=== PATIENT | female | born 1955 | race Caucasian/White ===

== ENCOUNTER 2019-12-17 11:47 | Emergency (ER) | payer MEDICARE, SELFPAY ==
[2019-12-17 11:59] VITALS: BP 168/74; PULSE 80; RESP 20; TEMP 36.9; O2SAT 98; BMI 32.8
--- NOTE | 2019-12-17 12:22 | ED.ABDPAIN ---
HPI - Abdominal Pain <DENILSON Benitez - Last Filed: 12/17/19 22:35> General Chief Complaint: Abdominal Pain Stated Complaint: Lower Abd Pain on Rt Side Time Seen by Provider: 12/17/19 12:03 Source: patient Mode of arrival: Wheelchair Limitations: no limitations History of Present Illness HPI narrative: This is a 64 year female, nonsmoker, who has history of hysterectomy and C-sections presents to ED with chief complain of right lower quadrant pain for last 3 days. Patient reports discomfort feels as spasming and grabs intermittently. Patient used heat which helped with discomfort but can associated things to aggravate pain. Patient denies fever, chills, nausea or vomiting. Patient had bowel movements twice this morning which was initially hard and 2nd on she had soft 1 without blood in her stool. Patient denies urinary symptoms. Patient had last meal at 8:00 p.m. last night and had lots of liquids this morning to drink. Patient presents to walk-in clinic this morning and she was referred to ED for further workup. Related Data Previous Rx's Medication Instructions Recorded ciprofloxacin HCl [Cipro] 500 mg PO BID 7 Days #14 tab 12/17/19 hydrocodone-acetaminophen [Buchanan] 1 tab PO Q8H PRN #7 tab 12/17/19 metronidazole [Flagyl] 500 mg PO Q8H 7 Days #21 tab 12/17/19 Allergies Allergy/AdvReac Type Severity Reaction Status Date / Time Sulfa (Sulfonamide AdvReac Intermediate Verified 12/17/19 11:25 Antibiotics) Review of Systems <DENILSON Benitez - Last Filed: 12/17/19 22:35> Review of Systems Narrative: General: Denies fever, chills, fatigue, malaise, sweats. HEENT: Denies sinus pain, ear pain, sore throat, difficulty swallowing, dizziness. Respiratory: Denies dyspnea, cough, wheezing, hemoptysis, sputum. Cardiovascular: Denies chest pain, palpitations, orthopnea, edema. Gastrointestinal: See HPI : Denies dysuria, frequency, incontinence, hematuria, urinary retention. Musculoskeletal: Denies weakness, joint pain or bony pain. Skin: Denies rash, skin lesions, or other. Neurologic: Denies weakness, headache, numbness, change in speech, confusion, seizures, incoordination. Psychiatric: No concerning psychosocial issues. 12-point review of systems is negative except for those stated above. Patient History <DENILSON Benitez - Last Filed: 12/17/19 22:35> Surgical History H/O: hysterectomy (Acute) History of (Acute) Social History Smoking Status: Never smoker Smoking Status: Never smoker alcohol intake frequency: 3 or more drinks per day Substance Use Type: does not use Exam <DENILSON Benitez - Last Filed: 12/17/19 22:35> Narrative Exam Narrative: GEN: Alert, oriented x 3, well appearing and nourished, and in no acute distress. Head: Normal cephalic, atraumatic. No scalp or temporal tenderness, palpable mass or rash. EYES: Pupils are equal, round, and reactive to light and accommodation. Extraocular muscles are intact bilaterally. There is no subconjunctival hemorrhage, exudate and sclera non-icteric. ENT: Hearing grossly intact. Nose without bleeding, purulent discharge or deviation. Mucous membrane moist, no mucosal lesion. Throat without erythema, tonsillar hypertrophy or exudate. Uvula in midline, airway patent. Neck: Trachea in midline. No JVD, non-tender without lymphadenopathy. No masses or thyroid megaly. Supple, non-tender and no meningeal signs. CARDIAC: Normal regular rate and rhythm without murmurs, gallops, or rubs. No chest wall tenderness. No peripheral edema, cyanosis or pallor. Capillary refill is less than 2 seconds. RESPIRATORY: Lungs are clear to auscultate bilaterally. No cough, wheezes, rales, or rhonchi. No stridor, respiratory distress, increase work of breathing, or accessary muscle used. ABD: Abdomen soft, focalized exquisite tenderness near McBurney's point. No guarding or rebound tenderness to palpate. Bowel sounds are normal in all 4 quadrants. There is no palpable masses or organomegaly. EXT: Full painless ROM of all extremities with no loss of sensation, strength, effusion or edema. SKIN: Warm, dry, normal color for patient. No erythema, lesions or rash over visible areas. BACK: Nontender without deformity or crepitance. No flank tenderness. NEUROLOGICAL: Alert and oriented to place, time and person. Sensation and motor function intact bilaterally. No facial droops, dysphasia. PSYCHIATRIC: Good judgement and reason, without hallucinations, abnormal affect or abnormal behaviors during the examination. Patient is not suicidal. Initial Vital Signs Initial Vital Signs: Vital Signs Temperature 98.5 F 12/17/19 11:59 Pulse Rate 80 12/17/19 11:59 Respiratory Rate 12/17/19 11:59 Blood Pressure 168/74 H 12/17/19 11:59 Pulse Oximetry 98 12/17/19 11:59 <Shelbi Fatima DO - Last Filed: 12/18/19 07:07> Initial Vital Signs Initial Vital Signs: Vital Signs Temperature 98.5 F 12/17/19 11:59 Pulse Rate 80 12/17/19 11:59 Respiratory Rate 12/17/19 11:59 Blood Pressure 168/74 H 12/17/19 11:59 Pulse Oximetry 98 12/17/19 11:59 Scores <DENILSON Benitez - Last Filed: 12/17/19 22:35> GCS [place] coma scale eye opening: Spontaneous [place] coma scale verbal response: Orientated Od[place]ys coma scale motor response: Obey commands Odalys coma scale total score: 15 qSOFA Altered Mental Status (GCS <15): No Respiratory rate greater than/equal to 22: No Systolic blood pressure less than or equal to 100: No qSOFA Total: 0 0-1 Not High Risk 1-3 High risk Course <DENILSON Benitez - Last Filed: 12/17/19 22:35> Orders Ordered: Discontinued Medications Ciprofloxacin (Cipro) 500 mg PO NOW ONE Stop: 12/17/19 15:29 Last Admin: 12/17/19 15:42 Dose: 500 mg Documented by: SUHAS Ketorolac Tromethamine (Toradol) 15 mg IV NOW ONE Stop: 12/17/19 12:15 Last Admin: 12/17/19 13:08 Dose: 15 mg Documented by: SUHAS Metronidazole (Metronidazole) 500 mg PO NOW ONE Stop: 12/17/19 15:29 Last Admin: 12/17/19 15:42 Dose: 500 mg Documented by: SUHAS Vital Signs Vital signs: Vital Signs - 8 hr 12/17/19 14:45 12/17/19 16:01 Pulse Rate 79 72 Respiratory Rate 15 18 Blood Pressure 119/64 116/65 Pulse Oximetry 97 97 <Shelbi Fatima DO - Last Filed: 12/18/19 07:07> Orders Ordered: Discontinued Medications Ciprofloxacin (Cipro) 500 mg PO NOW ONE Stop: 12/17/19 15:29 Last Admin: 12/17/19 15:42 Dose: 500 mg Documented by: SUHAS Ketorolac Tromethamine (Toradol) 15 mg IV NOW ONE Stop: 12/17/19 12:15 Last Admin: 12/17/19 13:08 Dose: 15 mg Documented by: SUHAS Metronidazole (Metronidazole) 500 mg PO NOW ONE Stop: 12/17/19 15:29 Last Admin: 12/17/19 15:42 Dose: 500 mg Documented by: SUHAS Vital Signs Vital signs: Vital Signs - 8 hr 12/17/19 14:45 12/17/19 16:01 Pulse Rate 79 72 Respiratory Rate 15 18 Blood Pressure 119/64 116/65 Pulse Oximetry 97 97 MDM - Abdominal Pain <DENILSON Benitez - Last Filed: 12/17/19 22:35> Differential Diagnosis Differential diagnosis: Likely abdominal pain, acute appendicitis, small bowel obstruction and other (Mesenteric adenopathy, hernia, colitis, ovarian cyst) Medical Records Attestation: I reviewed the patient's medical records. Lab Data Attestation: I reviewed the patient's lab results. Result diagrams: 12/17/19 12:45 12/17/19 12:45 Labs: Lab Results 12/17/19 12/17/19 12/17/19 Range/Units 12:45 12:45 12:45 WBC 6.4 (4.5-11.0) X10^3/uL RBC 4.48 (4.0-5.2) X10^6/uL Hgb 13.5 (12.0-16.0) g/dL Hct 40.2 (36-46) % MCV 89.8 (80-100) fL MCH 30.0 (26-34) PG MCHC 33.5 (30-36) % RDW 13.0 (11.6-14.8) % Plt Count 247 (150-400) X10^3/uL Neut % (Auto) 59.0 (50-75) % Lymph % (Auto) 30.7 (25-40) % [place] % (Auto) 7.5 (3-14) % Eos % (Auto) 2.2 (2-4) % Baso % (Auto) 0.6 (0-2) % Neut # (Auto) 3800 (5570-4689) /uL Lymph # (Auto) 2000 (9283-6713) /uL [place] # (Auto) 500 (0-900) /uL Eos # (Auto) 100 (0-450) /uL Baso # (Auto) 0 (0-100) /uL PT 11.2 (10.1-12.7) SECONDS INR 1.0 (0.9-1.3) APTT 28 (26.4-36.2) SECONDS Sodium 138 (137-145) mmol/L Potassium 3.9 (3.4-5.1) mmol/L Chloride 106 (98-107) mmol/L Carbon Dioxide 29 (22-32) mmol/L BUN 11 (7-17) mg/dL Creatinine 0.72 (0.52-1.04) mg/dL Estimated GFR > 60.0 (>60) mL/min BUN/Creatinine Ratio 15.3 (6-22) Glucose 106 (80-110) mg/dL Lactate (0.7-2.1) mmol/L Calcium 9.5 (8.4-10.2) mg/dL Total Bilirubin 0.6 (0.2-1.3) mg/dL AST 40 H (14-36) IU/L ALT 57 H (<35) IU/L Alkaline Phosphatase 81 (38-126) U/L Total Protein 7.5 (6.3-8.2) g/dL Albumin 4.7 (3.5-5.0) g/dL Globulin 2.8 (1.7-4.1) g/dL Albumin/Globulin Ratio 1.7 (1.0-2.8) Lipase 67 (23-300) U/L Urine Color Urine Appearance Urine pH (4.5-8.0) Ur Specific [place] (1.000-1.035) Urine Protein (Negative) Urine Glucose (UA) (Negative) g/dL Urine Ketones (NEGATIVE) Urine Occult Blood (Negative) Urine Nitrate (Negative) Urine Bilirubin (NEGATIVE) Urine Urobilinogen (0.2) E.U./dL Ur Leukocyte Esterase (NEGATIVE) Urine RBC (0-5/HPF) Urine WBC (0-5/HPF) Urine Bacteria (None) Ur Culture Indicated? Micro UA Comment 12/17/19 12/17/19 Range/Units 12:45 20:45 WBC (4.5-11.0) X10^3/uL RBC (4.0-5.2) X10^6/uL Hgb (12.0-16.0) g/dL Hct (36-46) % MCV (80-100) fL MCH (26-34) PG MCHC (30-36) % RDW (11.6-14.8) % Plt Count (150-400) X10^3/uL Neut % (Auto) (50-75) % Lymph % (Auto) (25-40) % [place] % (Auto) (3-14) % Eos % (Auto) (2-4) % Baso % (Auto) (0-2) % Neut # (Auto) (9018-4983) /uL Lymph # (Auto) (3063-4575) /uL [place] # (Auto) (0-900) /uL Eos # (Auto) (0-450) /uL Baso # (Auto) (0-100) /uL PT (10.1-12.7) SECONDS INR (0.9-1.3) APTT (26.4-36.2) SECONDS Sodium (137-145) mmol/L Potassium (3.4-5.1) mmol/L Chloride (98-107) mmol/L Carbon Dioxide (22-32) mmol/L BUN (7-17) mg/dL Creatinine (0.52-1.04) mg/dL Estimated GFR (>60) mL/min BUN/Creatinine Ratio (6-22) Glucose (80-110) mg/dL Lactate 0.7 (0.7-2.1) mmol/L Calcium (8.4-10.2) mg/dL Total Bilirubin (0.2-1.3) mg/dL AST (14-36) IU/L ALT (<35) IU/L Alkaline Phosphatase (38-126) U/L Total Protein (6.3-8.2) g/dL Albumin (3.5-5.0) g/dL Globulin (1.7-4.1) g/dL Albumin/Globulin Ratio (1.0-2.8) Lipase (23-300) U/L Urine Color Yellow Urine Appearance Clear Urine pH 7.0 (4.5-8.0) Ur Specific [place] <=1.005 (1.000-1.035) Urine Protein Negative (Negative) Urine Glucose (UA) Negative (Negative) g/dL Urine Ketones Negative (NEGATIVE) Urine Occult Blood Negative (Negative) Urine Nitrate Negative (Negative) Urine Bilirubin Negative (NEGATIVE) Urine Urobilinogen 0.2 (0.2) E.U./dL Ur Leukocyte Esterase Negative (NEGATIVE) Urine RBC None seen (0-5/HPF) Urine WBC None seen (0-5/HPF) Urine Bacteria None seen (None) Ur Culture Indicated? Cult not indicated Micro UA Comment Microscopic normal Imaging Data CT scan - abdomen/pelvis: Radiologist's Impression: [place] [address] CT Scan Report Signed Patient: Heidi Cruz CMR#: [id number] : 4Acct:[id number] Age/Sex: 64 / FDate of Service: 12/17/19 Loc: ED Accession Number: [id number] Procedure: CT abdomen pelvis w con Ordering Provider: Fermin Pittman PROCEDURE: CT ABDOMEN PELVIS W CON INDICATIONS: RLQ pain TECHNIQUE: After the administration of intravenous contrast, 5 mm thick sections acquired from the diaphragm to the symphysis. 5 mm coronal and sagittal reformats were acquired. For radiation dose reduction, the following was used: automated exposure control, adjustment of mA and/or kV according to patient size. COMPARISON: None. FINDINGS: Image quality: Excellent. ABDOMEN: Lung bases: There is an 11 mm ovoid soft tissue nodule seen involving the right lateral costophrenic angle, as on series 3, image 7. Heart size is normal. A small hiatal hernia is incidentally noted. Solid organs: Liver is normal in size and enhancement. Diffuse fatty liver infiltration is noted. Gallbladder wall is not thickened. Biliary system is non dilated. Pancreas enhances normally. Spleen is normal in size and enhancement. No adrenal nodules. Kidneys demonstrate normal size and enhancement, without hydronephrosis. Peritoneum and bowel: In this patient with this given history, scrutiny is given to the appendix and the right lower quadrant. No appendix (either normal or abnormal) is identified on this study. There is mild wall thickening seen involving the proximal ascending colon, with mild surrounding inflammatory change. No free air is seen to suggest perforation. No focal fluid collection is seen to suggest abscess. No bowel wall thickening is seen elsewhere. Colonic diverticulosis is seen, without findings of active diverticulitis. No dilated loops of small bowel are seen. Nodes and vessels: No retroperitoneal or mesenteric adenopathy by size criteria. Aorta and inferior vena cava are normal in size. Miscellaneous: No ventral hernias. PELVIS: Genitourinary: Bladder wall thickness is normal. This patient is status post hysterectomy. No adnexal masses are seen. Miscellaneous: No inguinal hernias or adenopathy. Bones: No suspicious bony lesions. No vertebral body compression fractures. Mild levoconvex scoliotic curvature is noted. Focal L5-S1 degenerative change is seen. Milder degenerative changes are seen elsewhere. IMPRESSION: There is mild inflammatory change seen involving the ascending colon. Please correlate with potential infectious and inflammatory causes. No appendix (either normal or abnormal) can be seen. Note is made of an 11 mm right lung base nodule. In a patient of this age, please consider a dedicated chest CT with IV contrast, when clinically appropriate. Incidental note is made of: Small hiatal hernia Fatty liver infiltration Hysterectomy No adnexal masses Focal L5-S1 degenerative change Note: Findings and recommendations discussed by telephone with DENILSON Benitez at 1:50 p.m. [place] time on December 17, 2019. Dictated by: Marek Porter M.D. on 12/17/2019 at 13:45 Approved by: Marek Porter M.D. on 12/17/2019 at 13:51 ECG Data Attestation: I personally reviewed and interpreted this ECG as follows: Prior ECG tracings: not available for review Interpretation: Sinus rhythm rate at 73. Normal [place]. RI interval 160, QRS duration 72, QT/QTC 390/429. No acute ST changes. MDM Narrative Medical decision making narrative: This is a 64 year female who presents to ED with right lower quadrant pain for last 3 days. Patient denies constitutional symptoms. Abdomen with exquisite tenderness in near McBurney's point but without rebound tenderness. She has history of several abdominal surgeries including hysterectomy and C-sections. EKG was normal sinus rhythm without acute ST changes. Urine test does not indicate infection. No leukocytosis. Unremarkable chemistry test except very mildly elevated AST and ALT of 40 and 57. Normal lipase. Lactate was normal at 0.7. Physical exam was not quiet consistent as appendicitis. Patient is not sure whether she has ovaries. Abdomen/pelvis CT test indicates mild inflammatory changes involving the ascending colon. No appendectomy is identified in CT. No signs of perforation, abscess, adnexal masses or mesenteric adenopathy appreciated. Incidental findings of 11 mm right lung base nodules and recommended dedicated chest CT with IV contrast; small hiatal hernia; fatty liver infiltration. Dr. Porter (radiologist) called to inform the findings at 1350. Findings were shared with the patient and she was medicated with Flagyl and Cipro and discharged to home with the remaining 7 day course given exquisite tenderness prophylactically as colitis. The patient was medicated with IV Toradol which moderately improved pain and discharged to home with few tabs of Buchanan for severe pain. Return precautions were discussed with patient and patient advised to follow-up with her primary care physician next 2-3 days for reassessment on abdominal pain and lung nodules. Patient verbalized understanding and agreement with the treatment plan. Consulted Dr. Fatima with physical, lab, CT findings and treatment plan. <Shelbi Fatima, DO - Last Filed: 12/18/19 07:07> Lab Data Labs: Lab Results 12/17/19 12/17/19 12/17/19 Range/Units 12:45 12:45 12:45 WBC 6.4 (4.5-11.0) X10^3/uL RBC 4.48 (4.0-5.2) X10^6/uL Hgb 13.5 (12.0-16.0) g/dL Hct 40.2 (36-46) % MCV 89.8 (80-100) fL MCH 30.0 (26-34) PG MCHC 33.5 (30-36) % RDW 13.0 (11.6-14.8) % Plt Count 247 (150-400) X10^3/uL Neut % (Auto) 59.0 (50-75) % Lymph % (Auto) 30.7 (25-40) % [place] % (Auto) 7.5 (3-14) % Eos % (Auto) 2.2 (2-4) % Baso % (Auto) 0.6 (0-2) % Neut # (Auto) 3800 (8558-8433) /uL Lymph # (Auto) 2000 (1925-5672) /uL [place] # (Auto) 500 (0-900) /uL Eos # (Auto) 100 (0-450) /uL Baso # (Auto) 0 (0-100) /uL PT 11.2 (10.1-12.7) SECONDS INR 1.0 (0.9-1.3) APTT 28 (26.4-36.2) SECONDS Sodium 138 (137-145) mmol/L Potassium 3.9 (3.4-5.1) mmol/L Chloride 106 (98-107) mmol/L Carbon Dioxide 29 (22-32) mmol/L BUN 11 (7-17) mg/dL Creatinine 0.72 (0.52-1.04) mg/dL Estimated GFR > 60.0 (>60) mL/min BUN/Creatinine Ratio 15.3 (6-22) Glucose 106 (80-110) mg/dL Lactate (0.7-2.1) mmol/L Calcium 9.5 (8.4-10.2) mg/dL Total Bilirubin 0.6 (0.2-1.3) mg/dL AST 40 H (14-36) IU/L ALT 57 H (<35) IU/L Alkaline Phosphatase 81 (38-126) U/L Total Protein 7.5 (6.3-8.2) g/dL Albumin 4.7 (3.5-5.0) g/dL Globulin 2.8 (1.7-4.1) g/dL Albumin/Globulin Ratio 1.7 (1.0-2.8) Lipase 67 (23-300) U/L Urine Color Urine Appearance Urine pH (4.5-8.0) Ur Specific [place] (1.000-1.035) Urine Protein (Negative) Urine Glucose (UA) (Negative) g/dL Urine Ketones (NEGATIVE) Urine Occult Blood (Negative) Urine Nitrate (Negative) Urine Bilirubin (NEGATIVE) Urine Urobilinogen (0.2) E.U./dL Ur Leukocyte Esterase (NEGATIVE) Urine RBC (0-5/HPF) Urine WBC (0-5/HPF) Urine Bacteria (None) Ur Culture Indicated? Micro UA Comment 12/17/19 12/17/19 Range/Units 12:45 20:45 WBC (4.5-11.0) X10^3/uL RBC (4.0-5.2) X10^6/uL Hgb (12.0-16.0) g/dL Hct (36-46) % MCV (80-100) fL MCH (26-34) PG MCHC (30-36) % RDW (11.6-14.8) % Plt Count (150-400) X10^3/uL Neut % (Auto) (50-75) % Lymph % (Auto) (25-40) % [place] % (Auto) (3-14) % Eos % (Auto) (2-4) % Baso % (Auto) (0-2) % Neut # (Auto) (9975-1455) /uL Lymph # (Auto) (2644-1757) /uL [place] # (Auto) (0-900) /uL Eos # (Auto) (0-450) /uL Baso # (Auto) (0-100) /uL PT (10.1-12.7) SECONDS INR (0.9-1.3) APTT (26.4-36.2) SECONDS Sodium (137-145) mmol/L Potassium (3.4-5.1) mmol/L Chloride (98-107) mmol/L Carbon Dioxide (22-32) mmol/L BUN (7-17) mg/dL Creatinine (0.52-1.04) mg/dL Estimated GFR (>60) mL/min BUN/Creatinine Ratio (6-22) Glucose (80-110) mg/dL Lactate 0.7 (0.7-2.1) mmol/L Calcium (8.4-10.2) mg/dL Total Bilirubin (0.2-1.3) mg/dL AST (14-36) IU/L ALT (<35) IU/L Alkaline Phosphatase (38-126) U/L Total Protein (6.3-8.2) g/dL Albumin (3.5-5.0) g/dL Globulin (1.7-4.1) g/dL Albumin/Globulin Ratio (1.0-2.8) Lipase (23-300) U/L Urine Color Yellow Urine Appearance Clear Urine pH 7.0 (4.5-8.0) Ur Specific [place] <=1.005 (1.000-1.035) Urine Protein Negative (Negative) Urine Glucose (UA) Negative (Negative) g/dL Urine Ketones Negative (NEGATIVE) Urine Occult Blood Negative (Negative) Urine Nitrate Negative (Negative) Urine Bilirubin Negative (NEGATIVE) Urine Urobilinogen 0.2 (0.2) E.U./dL Ur Leukocyte Esterase Negative (NEGATIVE) Urine RBC None seen (0-5/HPF) Urine WBC None seen (0-5/HPF) Urine Bacteria None seen (None) Ur Culture Indicated? Cult not indicated Micro UA Comment Microscopic normal Discharge Plan Departure Patient Disposition: Home Clinical Impression: Colitis, Lung nodule Abdominal pain Qualifiers: Abdominal location: right lower quadrant Qualified Code(s): R10.31 - Right lower quadrant pain Discharge Date/Time: 12/17/19 16:03 Instructions: DI for Colitis Activity Restrictions/Additional Instructions: You have been diagnosed with [right quadrant pain and colitis in the proximal ascending colon. Incidental findings of 11 mm right lung base nodule.]. What to do: *Take your medications as directed. Please take Cipro twice a day for next 7 days and Flagyl 3 times a day for next 7 days for colitis. Please take [id number] Tylenol and or Motrin as needed for discomfort and Buchanan for severe pain. Buchanan is narcotic pain medications so please take precautions for sedation and constipation. *Follow up with your primary care provider in 2-3 days, call for an appointment. Let them know you were seen in the ED and that we asked you to be seen in follow up. *Return to ED if you have any new, worsening, or concerning symptoms, such as [chest pain, breathing difficulty, unable to tolerate fluids, fever/chills, worsening pain, blood in her stool or any acute concerns]. Prescriptions: New ciprofloxacin HCl [Cipro] 500 mg tablet 500 mg PO BID 7 Days Qty: 14 RF: 0 metronidazole [Flagyl] 500 mg tablet 500 mg PO Q8H 7 Days Qty: 21 RF: 0 hydrocodone-acetaminophen [Buchanan] 5-325 mg tablet 1 tab PO Q8H PRN (Reason: pain) Qty: 7 RF: 0 Referrals: [facility] [Provider Group] Mariya Krueger PA-C [Primary Care Provider] - <Shelbi Fatima DO - Last Filed: 12/18/19 07:07> Cosign ED Attending Jorge Attestation: I was immediately available in the department for consultation. Documentation has been reviewed. I agree with assessment and plan.
[2019-12-17 13:00] VITALS: BP 145/77; PULSE 78; RESP 16; O2SAT 99
[2019-12-17 13:00] LABS: Add Manual Diff / Slide Review NO; Basophils Absolute Auto 0 /uL (0-100); Basophils Percent Auto 0.6 % (0-2); Eosinophils Absolute Auto 100 /uL (0-450); Eosinophils Percent Auto 2.2 % (2-4); Hematocrit 40.2 % (36-46); Hemoglobin 13.5 g/dL (12.0-16.0); Lymphocytes Absolute Auto 2000 /uL (1100-4500); Lymphocytes Percent Auto 30.7 % (25-40); Mean Corpuscular HGB Conc 33.5 % (30-36); Mean Corpuscular Volume 89.8 fL (80-100); Monocytes Absolute Auto 500 /uL (0-900); Monocytes Percent Auto 7.5 % (3-14); Neutrophils Absolute Auto 3800 /uL (1500-7000); Platelet Count 247 X10^3/uL (150-400); Red Blood Cell Count 4.48 X10^6/uL (4.0-5.2); White Blood Cell Count 6.4 X10^3/uL (4.5-11.0)
[2019-12-17] MEDS: KETOROLAC 60 MG/2 ML VIAL 15 MG IV (13:08)
[2019-12-17 13:12] LABS: Prothrombin Time 11.2 SECONDS (10.1-12.7)
[2019-12-17 13:14] LABS: PTT Partial Thromboplastin Tim 28 SECONDS (26.4-36.2)
[2019-12-17 13:16] LABS: Alanine Aminotransferase 57 IU/L (<35); Albumin 4.7 g/dL (3.5-5.0); Albumin Globulin Ratio 1.7 (1.0-2.8); Alkaline Phosphatase 81 U/L (38-126); Aspartate Aminotransferase 40 IU/L (14-36); BUN Creatinine Ratio 15.3 (6-22); Bilirubin Total 0.6 mg/dL (0.2-1.3); Blood Urea Nitrogen 11 mg/dL (7-17); Calcium 9.5 mg/dL (8.4-10.2); Carbon Dioxide 29 mmol/L (22-32); Chloride 106 mmol/L (98-107); Estimated Glomerular Filt Rate > 60.0 mL/min (>60); Globulin 2.8 g/dL (1.7-4.1); Glucose 106 mg/dL (80-110); HEMOLYSIS < 15 (0-50); Lipase 67 U/L (23-300); Potassium 3.9 mmol/L (3.4-5.1); Sodium 138 mmol/L (137-145); Total Protein 7.5 g/dL (6.3-8.2)
--- NOTE | 2019-12-17 13:45 | DI.CT.S_ITS ---
PROCEDURE: CT ABDOMEN PELVIS W CON INDICATIONS: RLQ pain TECHNIQUE: After the administration of intravenous contrast, 5 mm thick sections acquired from the diaphragm to the symphysis. 5 mm coronal and sagittal reformats were acquired. For radiation dose reduction, the following was used: automated exposure control, adjustment of mA and/or kV according to patient size. COMPARISON: None. FINDINGS: Image quality: Excellent. ABDOMEN: Lung bases: There is an 11 mm ovoid soft tissue nodule seen involving the right lateral costophrenic angle, as on series 3, image 7. Heart size is normal. A small hiatal hernia is incidentally noted. Solid organs: Liver is normal in size and enhancement. Diffuse fatty liver infiltration is noted. Gallbladder wall is not thickened. Biliary system is non dilated. Pancreas enhances normally. Spleen is normal in size and enhancement. No adrenal nodules. Kidneys demonstrate normal size and enhancement, without hydronephrosis. Peritoneum and bowel: In this patient with this given history, scrutiny is given to the appendix and the right lower quadrant. No appendix (either normal or abnormal) is identified on this study. There is mild wall thickening seen involving the proximal ascending colon, with mild surrounding inflammatory change. No free air is seen to suggest perforation. No focal fluid collection is seen to suggest abscess. No bowel wall thickening is seen elsewhere. Colonic diverticulosis is seen, without findings of active diverticulitis. No dilated loops of small bowel are seen. Nodes and vessels: No retroperitoneal or mesenteric adenopathy by size criteria. Aorta and inferior vena cava are normal in size. Miscellaneous: No ventral hernias. PELVIS: Genitourinary: Bladder wall thickness is normal. This patient is status post hysterectomy. No adnexal masses are seen. Miscellaneous: No inguinal hernias or adenopathy. Bones: No suspicious bony lesions. No vertebral body compression fractures. Mild levoconvex scoliotic curvature is noted. Focal L5-S1 degenerative change is seen. Milder degenerative changes are seen elsewhere. IMPRESSION: There is mild inflammatory change seen involving the ascending colon. Please correlate with potential infectious and inflammatory causes. No appendix (either normal or abnormal) can be seen. Note is made of an 11 mm right lung base nodule. In a patient of this age, please consider a dedicated chest CT with IV contrast, when clinically appropriate. Incidental note is made of: Small hiatal hernia Fatty liver infiltration Hysterectomy No adnexal masses Focal L5-S1 degenerative change Note: Findings and recommendations discussed by telephone with DENILSON Benitez at 1:50 p.m. [place] time on December 17, 2019. Dictated by: Marek Porter M.D. on 12/17/2019 at 13:45 Approved by: Marek Porter M.D. on 12/17/2019 at 13:51
[2019-12-17 14:45] VITALS: BP 119/64; PULSE 79; RESP 15; O2SAT 97
[2019-12-17 15:09] LABS: Lactate (Lactic Acid) 0.7 mmol/L (0.7-2.1)
[2019-12-17] MEDS: CIPROFLOXACIN 500 MG TABLET PO (15:42)
[2019-12-17] MEDS: metroNIDAZOLE 250 MG TABLET 500 MG PO (15:42)
[2019-12-17 16:01] VITALS: BP 116/65; PULSE 72; RESP 18; O2SAT 97
[2019-12-17 21:21] LABS: Bacteria Urine None Seen; RBC Urine None Seen (0-5/HPF); WBC Urine None Seen (0-5/HPF)
[2019-12-17 21:22] LABS: Appearance Urine UA CLEAR; Bilirubin Urine UA NEGATIVE (NEGATIVE); Color Urine UA YELLOW; Glucose Urine UA NEGATIVE (Negative); Ketones Urine UA NEGATIVE (NEGATIVE); Leukocyte Esterase Urine UA NEGATIVE (NEGATIVE); Nitrite Urine UA NEGATIVE (Negative); Occult Blood Urine UA NEGATIVE (Negative); Protein Urine UA NEGATIVE (Negative); Specific Gravity Urine UA <=1.005 (1.000-1.035); Urobilinogen Urine UA 0.2 E.U./dL (0.2)
[2019-12-17 21:29] LABS: Culture Indicated Urine Cult Not Indicated; Urine Comments Microscopic Normal
== END 2019-12-17 16:03 | disposition home or self-care (01) ==
PROVIDERS: Emergency Provider Nurse Practitioner Family; PCP Physician Assistant
DX: K52.9 Noninfective gastroenteritis and colitis, unspecified (principal); R91.1 Solitary pulmonary nodule; R10.31 Right lower quadrant pain
CPT/HCPCS: 36415; 74177; 80053; 81001; 83605; 83690; 85025; 85610; 85730; 93005; 93010; 96374; 99284; J1885; Q9967

== ENCOUNTER → 2021-06-08 08:32 | Outpatient (CLI) | payer MEDICARE, SELFPAY | PROVIDERS: PCP Physician Assistant; Visit Provider Nurse Practitioner Family | DX: R30.0 Dysuria (principal) | CPT/HCPCS: 87077; 87086; 87186 ==

== ENCOUNTER → 2021-07-03 17:54 | Outpatient (CLI) | payer MEDICARE, SELFPAY | PROVIDERS: PCP Physician Assistant; Visit Provider Physician Assistant | DX: N39.0 Urinary tract infection, site not specified (principal) | CPT/HCPCS: 87077; 87086; 87186 ==

== ENCOUNTER 2021-07-12 09:35 | Emergency (ER) | payer MEDICARE, SELFPAY ==
[2021-07-12 09:43] VITALS: BP 132/76; PULSE 60; RESP 15; TEMP 36.6; O2SAT 98; BMI 35.5
--- NOTE | 2021-07-12 10:10 | ED_ITS ---
HPI - Skin/Abscess/Foreign Bdy General Chief complaint: Skin/Abscess/Foreign Body Stated complaint: bit by spider, swelling going into eye/twitchy Time Seen by Provider: 07/12/21 09:57 Source: patient Mode of arrival: Ambulatory Limitations: no limitations History of Present Illness HPI narrative: 65-year-old female nonsmoker with noncontributory medical history presents at the request of her primary care provider for evaluation of some redness and swelling adjacent to her left eye upon waking. She states she is very concerned that she was bitten by spider. She denies any systemic complaints such as fever chills nor nausea or vomiting. She denies any trauma or injury. She denies any visual disturbance. Related Data Previous Rx's Medication Instructions Recorded hydrocodone 5 mg-acetaminophen 325 1 tab PO Q8H PRN #7 tab 12/16/20 mg tablet ([place]) phenazopyridine 200 mg tablet 200 mg PO TID 0 Days #6 tab 06/08/21 (Pyridium) mupirocin 2 % topical ointment 1 applic TOPICAL BID 7 Days g 07/12/21 Allergies Allergy/AdvReac Type Severity Reaction Status Date / Time Sulfa (Sulfonamide AdvReac Intermediate Verified 07/12/21 09:48 Antibiotics) Review of Systems Review of Systems Narrative: GENERAL: Denies chills, fatigue, malaise, fever, sweats. HEENT: Denies sinus pain, ear pain, sore throat, difficulty swallowing, dizziness. RESPIRATORY: Denies dyspnea, cough, wheezing, hemoptysis, sputum. CARDIOVASCULAR: Denies chest pain, palpitations, orthopnea, edema, GASTROINTESTINAL: Denies nausea, vomiting, abdominal pain, diarrhea, constipation, melena. : Denies dysuria, frequency, incontinence, hematuria, urinary retention. MUSCULOSKELETAL: denies weakness, joint pain, or bony pain SKIN: See HPI NEUROLOGIC: Denies weakness, headache, numbness, change in speech, confusion, seizures, incoordination. PSYCHIATRIC: No concerning psychosocial issues. 12 point review of systems is negative except for those stated above Patient History Surgical History H/O: hysterectomy History of Social History Smoking Status: Never smoker Smoking Status: Never smoker alcohol intake frequency: 3 or more drinks per day Substance Use Type: does not use Exam Narrative Exam Narrative: GEN: AOx3 and in mild distress EYES: Pupils are equal, round, and reactive to light and accommodation. Extraoccular muscles are intact bilaterally. There is no subconjunctival hemorrhage or exudate. CHEST: Lungs are clear to auscultation bilaterally and free of wheezes, rales, or rhonchi. Heart rate is regular rhythm, there are no murmurs, clicks, rubs, or gallops. There is no chest wall tenderness. ABD: Abdomen is soft and nontender. There is no guarding or rebound. Bowel sounds are normal in all 4 quadrants. There is no mass or organomegaly. EXT: Full painless ROM of all extremities with no loss of sensation or strength. SKIN: Minimal swelling and erythema adjacent to left brow, minimal involvement of upper lid, no tenderness or drainage very small area of central induration. Warm, pink, and dry. No erythema or rash Initial Vital Signs Initial Vital Signs: Vital Signs Temperature 97.9 F 07/12/21 09:43 Pulse Rate 60 07/12/21 09:43 Respiratory Rate 15 07/12/21 09:43 Blood Pressure 132/76 07/12/21 09:43 Pulse Oximetry 98 07/12/21 09:43 Course Vital Signs Vital signs: Vital Signs - 8 hr 07/12/21 09:43 Temperature 97.9 F Pulse Rate 60 Respiratory Rate 15 Blood Pressure 132/76 Pulse Oximetry 98 MDM - Skin/Abscess/Foreign Bdy MDM Narrative Medical decision making narrative: Patient with reassuring history and physical. She denies any injury. Considerations include infection versus insect bite. We discussed at length and patient is very convinced it was a spider bite. We talked about topical antibiotics, close observation and return precautions. Questions been answered to her apparent satisfaction Discharge Plan Departure Patient Disposition: Home Clinical Impression: Accidental spider bite Instructions: DI for Insect Bites and Stings Activity Restrictions/Additional Instructions: *You have been diagnosed with [left facial swelling secondary to spider bite versus early infection *What to do: *Please continue to take your regular medications as directed [x ] New medication written as a paper prescription (unable to electronically transmit due to software issue) [ x] Also, as we discussed please consider over the counter anti- inflammatories and antihistamines *Please follow up with your primary care provider in 2-3 days, call for an appointment. Let them know you were seen in the Emergency Department and that we ask that you be seen in follow up. We will electronically transmit a record of today's note if your PCP is in our system *If you do not have a primary care provider please contact the [facility] Resource line at [phone]. They will ask some questions about your medical history and help get you set up with a doctor in the community. *Return to Emergency Department if you should have any new, worsening or concerning symptoms, such as [fever greater than 101 F, shaking chills, worsening pain, persistent vomiting or other bothersome symptoms] Prescriptions: New mupirocin 2 % ointment 1 applic topical BID 7 Days 0RF No Action phenazopyridine [Pyridium] 200 mg tablet 200 mg PO TID 0 Days Qty: 6 0RF hydrocodone-acetaminophen [[place]] 5-325 mg tablet 1 tab PO Q8H PRN (Reason: pain) Qty: 7 0RF Referrals: Thomas Ledesma MD [Primary Care Provider] -
== END 2021-07-12 10:15 | disposition home or self-care (01) ==
PROVIDERS: Emergency Provider Emergency Medicine; PCP Family Medicine
DX: T63.301A Toxic effect of unspecified spider venom, accidental (unintentional), initial encounter (principal)
CPT/HCPCS: 99281

== ENCOUNTER → 2021-08-27 15:16 | Outpatient (CLI) | payer MEDICARE, SELFPAY ==
--- NOTE | 2021-08-27 | DI.MG.S_ITS ---
BILATERAL DIGITAL SCREENING MAMMOGRAM 3D/2D WITH CAD: 08/27/2021 CLINICAL: Routine screening. Comparison is made to exam dated: 05/25/2019 mammogram - outside location. The tissue of both breasts is predominantly fatty. Current study was also evaluated with a Computer Aided Detection (CAD) system. No significant masses, calcifications, or other findings are seen in either breast. There has been no significant interval change. IMPRESSION: NEGATIVE There is no mammographic evidence of malignancy. A 1 year screening mammogram is recommended. This exam was interpreted at Station ID: [id number]. NOTE: For mammograms, a report in lay terms will be sent to the patient. Approximately 15% of breast malignancies will not be visualized mammographically. In the management of a palpable breast mass, a negative mammogram must not discourage biopsy of a clinically suspicious lesion. Electronically Signed By: Rogelio Corbin M.D., jr/bernadine:08/28/2021 09:02:58 letter sent: Normal Exam ACR BI-RADS Category 1: Negative [id number]
== END ==
PROVIDERS: PCP Family Medicine; Referring Provider Family Medicine; Visit Provider Family Medicine
DX: Z13.820 Encounter for screening for osteoporosis (principal); Z12.31 Encounter for screening mammogram for malignant neoplasm of breast; Z78.0 Asymptomatic menopausal state; Z79.890 Hormone replacement therapy
CPT/HCPCS: 77063; 77067; 77080

== ENCOUNTER → 2021-11-08 15:45 | Outpatient (CLI) | payer MEDICARE, SELFPAY ==
--- NOTE | 2021-11-08 15:48 | DI.RAD.S_ITS ---
PROCEDURE: XR THORACIC SPINE 3V INDICATIONS: THORACIC PAIN TECHNIQUE: 3 views of the thoracic spine were acquired. COMPARISON: None. FINDINGS: Bones: No fractures or dislocations. No suspicious bony lesions. Visualized ribs are intact. Multilevel disc space narrowing and endplate osteophyte formation. Soft tissues: No paravertebral stripe thickening. IMPRESSION: Multilevel degenerative disc disease. No acute fracture. No osseous lesion. If symptoms and/or clinical suspicion for pathology persist, further assessment with repeat, or advanced imaging (e.g., CT, MRI, or bone scan) may be helpful for further assessment. Dictated by: Aniceto Galeano M.D. on 11/08/2021 at 16:25 Transcribed by: OFELIA on 11/08/2021 at 16:25 Approved by: Aniceto Galeano M.D. on 11/08/2021 at 16:55
== END ==
PROVIDERS: PCP Family Medicine; Referring Provider Family Medicine; Visit Provider Family Medicine
DX: M51.34 Other intervertebral disc degeneration, thoracic region (principal)
CPT/HCPCS: 72072

== ENCOUNTER → 2022-01-19 14:16 | Outpatient (CLI) | payer MEDICARE, SELFPAY | PROVIDERS: PCP Family Medicine; Visit Provider Registered Nurse | DX: R30.0 Dysuria (principal) | CPT/HCPCS: 87077; 87086; 87186 ==

== ENCOUNTER → 2022-02-11 08:12 | Outpatient (CLI) | payer MEDICARE, SELFPAY | PROVIDERS: PCP Family Medicine; Visit Provider Registered Nurse | DX: R30.0 Dysuria (principal) | CPT/HCPCS: 87077; 87086; 87186 ==

== ENCOUNTER → 2022-02-21 14:29 | Outpatient (CLI) | payer MEDICARE, SELFPAY | PROVIDERS: PCP Family Medicine; Visit Provider Registered Nurse | DX: R30.0 Dysuria (principal) | CPT/HCPCS: 87086 ==

== ENCOUNTER 2022-04-03 12:36 | Emergency (ER) | payer MEDICARE, SELFPAY ==
[2022-04-03 12:46] VITALS: BP 139/78; PULSE 81; RESP 15; TEMP 35.8; O2SAT 96; BMI 36.3
--- NOTE | 2022-04-03 14:35 | ED.WOUNDLAC ---
HPI - Wound/Laceration <DENILSON Earl - Last Filed: 04/03/22 16:02> General Chief Complaint: Wound/Laceration Stated Complaint: Rt leg lac Time Seen by Provider: 04/03/22 14:33 Source: patient Mode of arrival: Ambulatory History of Present Illness HPI narrative: This is a 66-year-old female presents to the emergency department after she tripped in her motor home scraping her right wheeler on the metal bed frame causing an avulsion laceration to her right lower extremity. Patient states she needs a tetanus vaccination, is concerned about the pain of 1 but encouraged to receive it since hers is out of date. Patient states that her cat scratched her recently and she has a scratch on this lower extremity it has caused some pain but no signs of infection. She is on an antibiotic currently for a bladder infection. Denies any bony injury or difficulty walking. Related Data Previous Rx's Medication Instructions Recorded hydrocodone 5 mg-acetaminophen 325 1 tab PO Q8H PRN pain #7 tabs 12/16/20 mg tablet ([place]) phenazopyridine 200 mg tablet 200 mg PO TID 6 doses #6 tabs 06/08/21 (Pyridium) cyclobenzaprine 5 mg tablet 5 mg PO TID PRN muscle spasm #20 08/30/21 tabs methocarbamol 500 mg tablet 500 mg PO TID PRN Back spasms #20 01/19/22 tabs phenazopyridine 200 mg tablet 200 mg PO TID PRN pain 6 doses #6 02/11/22 (Pyridium) tabs Allergies Allergy/AdvReac Type Severity Reaction Status Date / Time Sulfa (Sulfonamide AdvReac Intermediate Verified 04/03/22 12:46 Antibiotics) Review of Systems <DENILSON Earl - Last Filed: 04/03/22 16:02> Review of Systems ROS Unobtainable: All systems reviewed & are unremarkable except as noted in HPI and below Patient History <DENILSON Earl - Last Filed: 04/03/22 16:02> Surgical History H/O: hysterectomy History of Social History Smoking Status: Never smoker Smoking Status: Never smoker alcohol intake frequency: 3 or more drinks per day Substance Use Type: does not use Exam <DENILSON Earl - Last Filed: 04/03/22 16:02> Narrative Exam Narrative: Reviewed vitals signs and nursing notes. General: cooperative, comfortable, in no acute distress, well groomed MSK: moves all extremities, neurovascularly intact, no weakness, normal tone ambulatory, avulsion laceration proximally 2 cm in total over the right tibia without bony injury, bone is viewable and visibly intact without fracture, without deep injury, or bleeding Skin: brisk capillary refill, without pallor or erythema Initial Vital Signs Initial Vital Signs: Vital Signs Temperature 96.4 F L 04/03/22 12:46 Pulse Rate 81 04/03/22 12:46 Respiratory Rate 15 04/03/22 12:46 Blood Pressure 139/78 04/03/22 12:46 Pulse Oximetry 96 04/03/22 12:46 Oxygen Delivery Method 04/03/22 12:46 <Miles Hernandes MD - Last Filed: 04/03/22 17:43> Initial Vital Signs Initial Vital Signs: Vital Signs Temperature 96.4 F L 04/03/22 12:46 Pulse Rate 81 04/03/22 12:46 Respiratory Rate 15 04/03/22 12:46 Blood Pressure 139/78 04/03/22 12:46 Pulse Oximetry 96 04/03/22 12:46 Oxygen Delivery Method 04/03/22 12:46 Procedures <DENILSON Earl - Last Filed: 04/03/22 16:02> Laceration Repair Laceration 1: Site: lower extremity Side (If applicable): right Size (cm): 2 Description: flap and irregular Depth: simple, single layer Local Anesthetic: lidocaine 2% and with epi Amount of anesthesia used (mL): 3 Pre-repair: wound explored, irrigated extensively and deep structures intact Skin layer closed with: nylon Skin layer suture size: 5-0 Number of sutures: 12 Technique: simple, interrupted Course <DENILSON Earl - Last Filed: 04/03/22 16:02> Orders Ordered: Discontinued Medications Acetaminophen (Acetaminophen 325 Mg Tablet) 975 mg PO NOW ONE Stop: 04/03/22 14:34 Last Admin: 04/03/22 15:04 Dose: 975 mg Documented By: NR Bacitracin (Bacitracin Oint 0.9 Gm Pckt) 1 applic TOP NOW ONE Stop: 04/03/22 14:34 Last Admin: 04/03/22 15:04 Dose: 1 applic Documented By: NR Diphtheria/Tetanus/Acell Pertussis (Tet,Diph,Pertuss(Acell),Vac/Pf 0.5 Ml Syringe) 0.5 ml IM .ONCE ONE Stop: 04/03/22 14:30 Last Admin: 04/03/22 15:56 Dose: 0.5 ml Documented By: NR Ketorolac Tromethamine (Ketorolac 10 Mg Tablet) 10 mg PO NOW ONE Stop: 04/03/22 14:34 Last Admin: 04/03/22 15:04 Dose: 10 mg Documented By: NR Lidocaine HCl (Lidocaine 2% Inj Sdv) 5 ml INJ INTRA-OP ONE Stop: 04/03/22 14:34 Last Admin: 04/03/22 15:04 Dose: 5 ml Documented By: NR Vital Signs Vital signs: Vital Signs - 8 hr 04/03/22 12:46 Temperature 96.4 F L Pulse Rate 81 Respiratory Rate 15 Blood Pressure 139/78 Pulse Oximetry 96 Oxygen Delivery Method Room Air <Miles Hernandes MD - Last Filed: 04/03/22 17:43> Orders Ordered: Discontinued Medications Acetaminophen (Acetaminophen 325 Mg Tablet) 975 mg PO NOW ONE Stop: 04/03/22 14:34 Last Admin: 04/03/22 15:04 Dose: 975 mg Documented By: NR Bacitracin (Bacitracin Oint 0.9 Gm Pckt) 1 applic TOP NOW ONE Stop: 04/03/22 14:34 Last Admin: 04/03/22 15:04 Dose: 1 applic Documented By: NR Diphtheria/Tetanus/Acell Pertussis (Tet,Diph,Pertuss(Acell),Vac/Pf 0.5 Ml Syringe) 0.5 ml IM .ONCE ONE Stop: 04/03/22 14:30 Last Admin: 04/03/22 15:56 Dose: 0.5 ml Documented By: NR Ketorolac Tromethamine (Ketorolac 10 Mg Tablet) 10 mg PO NOW ONE Stop: 04/03/22 14:34 Last Admin: 12/08/22 15:04 Dose: 10 mg Documented By: CHARLI Lidocaine HCl (Lidocaine 2% Inj Sdv) 5 ml INJ INTRA-OP ONE Stop: 04/03/22 14:34 Last Admin: 04/03/22 15:04 Dose: 5 ml Documented By: NR Vital Signs Vital signs: Vital Signs - 8 hr 04/03/22 12:46 Temperature 96.4 F L Pulse Rate 81 Respiratory Rate 15 Blood Pressure 139/78 Pulse Oximetry 96 Oxygen Delivery Method Room Air [facility] - Wound/Laceration <DENILSON Earl - Last Filed: 04/03/22 16:02> [facility] Narrative Medical decision making narrative: This is a 66 year female presents to the emergency department with a right leg injury which she scraped on a bed frame just prior to arrival. Her tetanus was updated today as she needed it updated, she had an avulsion verses laceration to the right anterior lower leg over the tibia. Suture repair was completed with fair to good wound approximation. Superficial avulsion flap with thin tissue although base of wound appears well approximated. Thorough irrigation with normal saline, no foreign body, no visible fracture, bone was visible. No injury to deep tissues. Patient's suture repair was completed with 12 sutures, she understands to have these removed in 7-10 days, use topical antibiotic ointment and a Band-Aid, and gentle cleanser for daily cleaning. She will follow up with her primary care provider as needed and return for worsening condition. Discussed infection findings and how to look out for this. Patient is appropriate and amenable to discharge home. Vital signs are stable on repeat examination is unremarkable. Patient has been informed of results. Patient has been given strict return to ER precautions for any new or worsening symptoms. Patient understands to follow up closely with outpatient providers as instructed. Patient understands plan and agrees to discharge home. All questions and concerns answered at this time. Discharge Plan Departure Patient Disposition: Home Clinical Impression: Laceration Instructions: DI for Laceration Repair, DI for Laceration Repair -- Complex Suture Activity Restrictions/Additional Instructions: *You have been diagnosed with [a laceration to her right lower extremity, use topical antibiotic ointment and a Band-Aid and change her dressing twice a day, you can shower like usual, please have your sutures removed in 7-10 days, you can do this yourself home, whether it 1st so that it does not hurt when the scabs for through, you may have some tissue, and some of the sutures may follow out as this happens, it is okay to trim them that flap of skin comes off. Try to leave it alone unless something happens to it, the Band-Aid protect from your clothing. Please return to the emergency department if you notice redness or streaking up your leg, worsening pain, if you have signs of infection. Please get your tetanus vaccine today, that will cover you for the next 10 years, I hope you feel better soon, is a pleasure to meet you.] *What to do: *Please continue to take your regular medications as directed. [ ] New medication prescriptions sent to your pharmacy: [ ] [ ] New medication written as a paper prescription [x ] No new medications given *Please follow up with your primary care provider in 2-3 days, call for an appointment. Let them know you were seen in the Emergency Department and that we asked that you be seen for follow-up. We will electronically transmit a record of today's note if your PCP is in our system *If you do not have a primary care provider please contact [phone] to establish care with one of [facility] primary care providers. *Return to Emergency Department if you should have any new, worsening, or concerning symptoms, such as [fever greater than 101F, chills, worsening pain, persistent vomiting or other bothersome symptoms]. Prescriptions: No Action methocarbamol 500 mg tablet 500 mg PO TID PRN (Reason: Back spasms) Qty: 20 0RF phenazopyridine [[place]] 200 mg tablet 200 mg PO TID 0 Days Qty: 6 0RF cyclobenzaprine 5 mg tablet 5 mg PO TID PRN (Reason: muscle spasm) Qty: 20 0RF phenazopyridine [Pyridium] 200 mg tablet 200 mg PO TID PRN (Reason: pain) Qty: 6 0RF hydrocodone-acetaminophen [[place]] 5-325 mg tablet 1 tab PO Q8H PRN (Reason: pain) Qty: 7 0RF Referrals: Thomas Ledesma MD [Primary Care Provider] - Visit Report Forms: Patient Portal/API <Miles Hernandes MD - Last Filed: 04/03/22 17:43> Cosign ED Attending Cosanneature Attestation: I was immediately available in the department for consultation. ?This documentation has been reviewed and I agree with assessment and plan. Supervised by Miles Hernandes MD
[2022-04-03] MEDS: ACETAMINOPHEN 325 MG TABLET 975 MG PO (15:04)
[2022-04-03] MEDS: KETOROLAC 10 MG TABLET PO (15:04)
[2022-04-03] MEDS: BACITRACIN OINT 0.9 GM PCKT 1 APPLIC TOP (15:04)
[2022-04-03] MEDS: LIDOCAINE 2% INJ SDV 5 ML INJ (15:04)
[2022-04-03] MEDS: TET,DIPH,PERTUSS(ACELL),VAC/PF 0.5 ML SYRINGE IM (15:56)
== END 2022-04-03 15:59 | disposition home or self-care (01) ==
PROVIDERS: Emergency Provider Nurse Practitioner Critical Care Medicine; PCP Family Medicine
DX: S81.811A Laceration without foreign body, right lower leg, initial encounter (principal); W22.8XXA Striking against or struck by other objects, initial encounter; Z23 Encounter for immunization
CPT/HCPCS: 12001; 90471; 99283; 99284; 90715

== ENCOUNTER → 2022-04-16 14:44 | Outpatient (CLI) | payer MEDICARE, SELFPAY ==
--- NOTE | 2022-04-16 14:47 | DI.US.S_ITS ---
PROCEDURE: US RENAL COMPLETE INDICATIONS: REOCCURRING URINARY TRACT INFECTION TECHNIQUE: Real-time scanning was performed of the kidneys and bladder, with image documentation. COMPARISON: None. FINDINGS: Kidneys: Kidneys are normal in size. Right kidney measures 10.4 cm long; left kidney measures 10.2 cm long. Right renal cortical thickness is 1.9 cm; left renal cortical thickness is 1.4 cm. Renal cortical echotexture is normal. No hydronephrosis or nephrolithiasis. No suspicious solid mass lesions. Bladder: Pre-void bladder volume is 292 mL. Post-void residual is 8 mL. Pre-void images demonstrate no intraluminal masses or stones. On pre-void images, left ureteral jet is noted with color Doppler interrogation. (Of note, ureteral jets may not be detectable in up to 25% of cases due to insufficient differences in specific gravity between ureteral and bladder urine). Miscellaneous: No free pelvic fluid. The liver is increased in echogenicity. IMPRESSION: 1. No hydronephrosis or nephrolithiasis. 2. No significant postvoid residual. 3. Increased hepatic echogenicity noted likely related to fatty infiltration of the liver but other sources of hepatocellular disease cannot be excluded. Dictated by: Sandra Pringle M.D. on 04/16/2022 at 15:46 Approved by: Sandra Pringle M.D. on 04/16/2022 at 15:47
== END ==
PROVIDERS: PCP Family Medicine; Referring Provider Urology; Visit Provider Urology
DX: N39.0 Urinary tract infection, site not specified (principal)
CPT/HCPCS: 76770

== ENCOUNTER → 2022-04-25 11:12 | Outpatient (ROUT) | payer MEDICARE, SELFPAY ==
[2022-04-25 11:25] LABS: INR 1.1 (0.9-1.3); Prothrombin Time 12.4 SECONDS (10.1-12.7)
== END ==
PROVIDERS: PCP Family Medicine; Visit Provider Registered Nurse
DX: R74.8 Abnormal levels of other serum enzymes (principal)
CPT/HCPCS: 85610